=== PATIENT | male | born 1945 | race Caucasian/White ===

== ENCOUNTER 2020-12-12 07:15 | Emergency (ER) | payer MEDICARE, BC ==
--- NOTE | 2020-12-12 07:46 | EDM.PDOC ---
ED HPI GENERAL MEDICAL PROBLEM - General Chief Complaint: Skin Complaint Stated Complaint: ABSCESS IN ARMPIT Time Seen by Provider: 12/12/20 07:38 - History of Present Illness INITIAL COMMENTS - FREE TEXT/NARRATIVE: 75-year-old male presents the emergency room with a sore in his right armpit. He first noticed this probably Sunday as a small bump and it is progressively gotten a little bit larger and now has developed some significant redness around the area. He has not had any fevers or chills. He has not noticed any drainage from the area. The patient has not had prior problems like this in the past. Right Axillary Pain Score (Numeric/FACES): 7 - Related Data Allergies Allergy/AdvReac Type Severity Reaction Status Date / Time No Known Allergies Allergy Verified 12/12/20 07:28 Home Meds: Home Meds . [No Known Home Meds] 12/12/20 [History] Social & Family History - Tobacco Use Tobacco Use Status *Q: Former Tobacco User Years of Tobacco use: 15 Packs/Tins Daily: 0.5 Used Tobacco, but Quit: Yes Month/Year Tobacco Last Used: 40 - Caffeine Use Caffeine Use: Reports: Coffee - Recreational Drug Use Recreational Drug Use: No ED ROS GENERAL - Review of Systems Review Of Systems: See Below Constitutional: Reports: No Symptoms Respiratory: Reports: No Symptoms Cardiovascular: Reports: No Symptoms GI/Abdominal: Reports: No Symptoms ED EXAM, SKIN/RASH Exam: See Below Exam Limited By: No Limitations General Appearance: Alert, No Apparent Distress Respiratory/Chest: No Respiratory Distress, Lungs Clear, Normal Breath Sounds Cardiovascular: Regular Rate, Rhythm, No Edema, No Murmur Skin: Warm, Dry, Intact, Other (His right axilla he is got a lesion that is approximately 1 cm x 1-1/2 cm raised nonfluctuant yet. This is surrounded by significant erythema out several centimeters from the center of the lesion.) Course - Vital Signs Last Recorded V/S: Last Vital Signs Temp 35.9 C L 12/12/20 07:29 Pulse 88 12/12/20 07:29 Resp 16 12/12/20 07:29 BP 126/67 12/12/20 07:29 Pulse Ox 98 12/12/20 07:29 - Re-Assessments/Exams Free Text/Narrative Re-Assessment/Exam: 12/12/20 07:51 At this point we will have the patient use warm compresses to the area every couple hours while awake we will start him on Bactrim DS No. 20 from the machine out in the waiting room 1 p.o. twice daily. He agrees to follow-up with his regular healthcare provider back home in [place] on Sunday or Sunday for recheck. Departure - Departure Time of Disposition: 07:55 Disposition: Home, Self-Care Clinical Impression: Hidradenitis suppurativa of right axilla - Discharge Information Referrals: Regan Flannery MD [Primary Care Provider] - Additional Instructions: Return to the emergency room with any questions problems or worsening symptoms. Follow-up with your regular healthcare provider on Sunday or Sunday for recheck. You have been started on Bactrim DS from the machine out in the waiting room take 1 twice daily for 10 days. You will not see any benefit from this for a couple of days. More importantly use warm moist compresses to the area for 15 to 20 minutes every couple hours while you are awake. Sepsis Event Note (ED) - Evaluation Sepsis Screening Result: No Definite Risk - Focused Exam Vital Signs: Vital Signs Temp Pulse Resp BP Pulse Ox 12/12/20 07:29 35.9 C L 88 16 126/67 98
== END 2020-12-12 08:00 | disposition home or self-care (01) ==
LOC: JD.ED 07:15
DX: L73.2 Hidradenitis suppurativa (principal); Z87.891 Personal history of nicotine dependence
CPT/HCPCS: 99283